=== PATIENT | female | born 1965 | race American Indian/Alaskan Native ===

== ENCOUNTER 2017-04-04 19:25 | Emergency (ER) | payer OTHER ==
[2017-04-04 19:50] VITALS: BP 150/83; PULSE 78; RESP 16; TEMP 98.3; O2SAT 97
--- NOTE | 2017-04-04 20:35 | ED PDOC ---
Lower Extremity Pain/Injury Time Seen by Provider: 04/04/17 20:07 Chief Complaint (Nursing): Hip Pain Chief Complaint (Provider): right hip pain History Per: Patient History/Exam Limitations: no limitations Onset/Duration Of Symptoms: Days (2), Waxing/Waning Current Symptoms Are (Timing): Still Present Additional History Per: Patient Additional Complaint(s): 52 y/o female presents for eval of right hip pain x 2 days. Patient states she works for [employer] and did a lot of walking the day the pain started. She notes pain worse when changing position from sitting to standing, described as "stiff ", relieved with Aleve, last taken yesterday. Denies back pain, numbness/ weakness lower extremities, bowel/bladder incontinence, calf pain/swelling. Patient also notes left ear and throat irritation x 1 day. Associated sneezing. Denies fever, ear drainage, nasal congestion, nausea/vomiting, cough , chest pain, shortness of breath. Past Medical History Reviewed: Historical Data, Nursing Documentation, Vital Signs Vital Signs: Last Vital Signs Temp 98.3 F 04/04/17 19:48 Pulse 78 04/04/17 19:48 Resp 16 04/04/17 19:48 BP 150/83 04/04/17 19:48 Pulse Ox 97 04/04/17 19:48 - Medical History PMH: No Chronic Diseases - Surgical History Surgical History: No Surg Hx - Family History Family History: States: Unknown Family Hx - Living Arrangements Living Arrangements: With Family - Home Medications Home Medications: Ambulatory Orders Medication Instructions Recorded Naproxen [Naprosyn] 500 mg PO Q12 PRN #20 tablet 04/04/17 - Allergies Allergies/Adverse Reactions: Allergies Allergy/AdvReac Type Severity Reaction Status Date / Time No Known Allergies Allergy Verified 04/04/17 19:47 Review of Systems ROS Statement: Except As Marked, All Systems Reviewed And Found Negative ENT: Positive for: Ear Pain, Throat Pain Physical Exam - Reviewed Nursing Documentation Reviewed: Yes Vital Signs Reviewed: Yes - Physical Exam Appears: Positive for: Well, Non-toxic, No Acute Distress Head Exam: Positive for: ATRAUMATIC, NORMAL INSPECTION, NORMOCEPHALIC Skin: Positive for: Normal Color Eye Exam: Positive for: Normal appearance ENT: Positive for: Normal ENT Inspection, TM Is/Are (clear b/l), Pharyngeal Erythema. Negative for: Sinus Pain/Drainage, Nasal Congestion, Tonsillar Exudate, Tonsillar Swelling Cardiovascular/Chest: Positive for: Regular Rate, Rhythm Respiratory: Positive for: Normal Breath Sounds Extremity: Positive for: Normal ROM, Tenderness (right hip with no swelling, ecchymosis) Neurologic/Psych: Positive for: Alert, Oriented - ECG O2 Sat by Pulse Oximetry: 97 - Other Rad right hip X-Ray: Viewed By Me X-Ray Interpretation: no acute findings - Progress ED Course And Treament: rapid strep, xray, Toradol IM Patient educated on findings, discharged with rx Naproxen. Advised fluids, rest, follow up PMD 2-3 days. Return to ED for worsening/concerning symptoms. Disposition - Clinical Impression Clinical Impression: Hip pain, URI (upper respiratory infection) - Patient ED Disposition Is Patient to be Admitted: No Counseled Patient/Family Regarding: Studies Performed, Diagnosis, Need For Followup, Rx Given - Disposition Disposition: Routine/Home Disposition Time: 21:40 Condition: GOOD Prescriptions: Naproxen [Naprosyn] 500 mg PO Q12 PRN #20 tablet PRN Reason: Pain, Moderate (4-7) Instructions: Hip Sprain (ED), Upper Respiratory Infection (ED) Forms: [facility] ED School/Work Excuse
[2017-04-04] MEDS ORDERED: Lidocaine 1% Inj (20ml) ONE (20:40)
--- NOTE | 2017-04-05 12:09 | RAD ---
PROCEDURE: Pelvis, right hip HISTORY: right hip Pain. No history of recent/ related trauma provided COMPARISON: None TECHNIQUE: Standard protocol for this study/examination. FINDINGS: There are no osseous abnormalities to suggest fracture. The pelvic ring is intact. Preserved femoral-acetabular relationship. Negative study for protrusio, subluxation or dislocation. Degenerative changes: None. IMPRESSION: No significant or acute findings to account for/ related to the clinical presentation.
== END 2017-04-04 21:41 | disposition home or self-care (01) ==
LOC: H.ER 19:25
DX: M25.551 Pain in right hip (principal); J06.9 Acute upper respiratory infection, unspecified